=== PATIENT | female | born 1940 | race Caucasian/White ===

== ENCOUNTER 2018-03-22 09:15 | Inpatient (IN) | payer MEDICARE, OTHER ==
[~2018-03-22 09:15] MED LIST: Lactated Ringers 1,000 ML IV SCH; Lidocaine 1%/Sod Bicarbonate in NS 8.4% 1 ML Syringe IDERM PRN; Sodium Chloride 0.9% 10 ML Syringe FLUSH PRN
[2018-03-25] MEDS ORDERED: Lidocaine 1%/Sod Bicarbonate in NS 8.4% 1 ML Syringe IDERM PRN (00:01)
[2018-03-25] MEDS ORDERED: Sodium Chloride 0.9% 10 ML Syringe FLUSH PRN (00:01)
[2018-03-25] MEDS ORDERED: Lactated Ringers 1,000 ML IV SCH (00:01)
[2018-03-25] MEDS ORDERED: Vancomycin 1 GM SDV ONE (10:05)
[2018-03-25] MEDS ORDERED: Propofol 200 MG/20 ML SDV ONE (10:12)
[2018-03-25] MEDS ORDERED: ceFAZolin 1 GM Vial ONE (10:12)
[2018-03-25] MEDS ORDERED: fentaNYL 100 MCG/2 ML SDV ONE (10:13)
[2018-03-25] MEDS ORDERED: Midazolam 1 MG/ML 2 ML SDV ONE (10:21)
[2018-03-25] MEDS ORDERED: Bupivacaine 0.75% 30 ML SDV ONE (10:23)
[2018-03-25] MEDS ORDERED: Morphine PF 10 MG/10 ML SDV ONE (10:36)
--- NOTE | 2018-03-25 10:36 | PCM.PREANE ---
Preanesthetic Assessment - Anesthesia/Transfusion/Family Hx Anesthesia History: Prior Anesthesia Reaction Other Type of Anesthesia Reaction Comment: low blood pressure Family History of Anesthesia Reaction: No Transfusion History: Prior Transfusion Without Reaction - Review of Systems General: No Symptoms Pulmonary: No Symptoms Cardiovascular: No Symptoms Gastrointestinal: No Symptoms Neurological: Pre-Existing Deficit (Difficulty due to pain in hip at a "10".), Other (Back surgery with bone spur removal at L4-5. Approximately 4 years ago. ) Other: Reports: None (Shingles outbreak. No open lesions identified. Small red area near buttocks. Not painful. examined and wishes to proceed. ), Anxiety - Physical Assessment NPO Status Date: 03/24/18 NPO Status Time: 21:30 O2 Sat by Pulse Oximetry: 97 Respiratory Rate: 16 Vital Signs: Last Vital Signs Temp 36.8 C 03/25/18 09:40 Pulse 72 03/25/18 09:40 Resp 16 03/25/18 09:40 BP 154/54 H 03/25/18 09:40 Pulse Ox 97 03/25/18 09:40 ASA Class: 2 Mental Status: Alert & Oriented x3 Airway Class: Mallampati = 2 Dentition: Reports: Partial (One tooth on bottome removed. ) Thyro-Mental Finger Breadths: 3 Mouth Opening Finger Breadths: 3 ROM/Head Extension: Full Lungs: Clear to Auscultation, Normal Respiratory Effort Cardiovascular: Regular Rate, Regular Rhythm - Lab Values: Laboratory Last Values MRSA (PCR) Negative 03/10/18 09:39 - Allergies Allergies/Adverse Reactions: Allergies Allergy/AdvReac Type Severity Reaction Status Date / Time No Known Allergies Allergy Verified 03/25/18 10:03 - Acknowledgements Anesthesia Type Planned: Spinal Pt an Appropriate Candidate for the Planned Anesthesia: Yes Alternatives and Risks of Anesthesia Discussed w Pt/Guardian: Yes Pt/Guardian Understands and Agrees with Anesthesia Plan: Yes PreAnesthesia Questionnaire HEENT History: Reports: Impaired Vision, Other (See Below) Other HEENT History: has reading glasses and lower denture Cardiovascular History: Reports: None Respiratory History: Reports: Other (See Below) Other Respiratory History: bronchitis Gastrointestinal History: Reports: Other (See Below) Other Gastrointestinal History: adhesiolysis Genitourinary History: Reports: Other (See Below) Other Genitourinary History: frequency EMERGENCY DEPARTMENT TECHNICIAN History: Reports: None Musculoskeletal History: Reports: Back Pain, Chronic, Other (See Below) Other Musculoskeletal History: left hip pain Neurological History: Reports: None Psychiatric History: Reports: None Endocrine/Metabolic History: Reports: None Hematologic History: Reports: None Immunologic History: Reports: None Oncologic (Cancer) History: Reports: None Dermatologic History: Reports: None - Past Surgical History Head Surgeries/Procedures: Reports: None HEENT Surgical History: Reports: None Cardiovascular Surgical History: Reports: None Respiratory Surgical History: Reports: None GI Surgical History: Reports: Colonoscopy Female Surgical History: Reports: Section, Hysterectomy Male Surgical History: Reports: None Endocrine Surgical History: Reports: None Neurological Surgical History: Reports: Other (See Below) Other Neurological Surgeries/Procedures: low back surgery Musculoskeletal Surgical History: Reports: None Oncologic Surgical History: Reports: None Dermatological Surgical History: Reports: None - SUBSTANCE USE Smoking Status *Q: Never Smoker Second Hand Smoke Exposure: No Recreational Drug Use History: No - HOME MEDS Home Medications: Home Meds traMADol HCl [Tramadol HCl] 50 mg PO Q6H PRN 03/24/18 [History] - CURRENT (IN HOUSE) MEDS Current Meds: Current Medications Bisacodyl (Dulcolax) 5 mg PO DAILY PRN PRN Reason: Constipation Morphine Sulfate 8 mg/Epinephrine HCl 0.3 mg/Cefuroxime Sodium 750 mg/Ketorolac Tromethamine 30 mg/Sodium Chloride 27.9 ml 0 mg .XX ONETIME ONE Stop: 03/25/18 12:31 Cyclobenzaprine HCl (Flexeril) 10 mg PO TID PRN PRN Reason: Spasms Docusate Sodium (Colace) 100 mg PO BID [facility] Famotidine (Pepcid) 20 mg PO Q12H [facility] Lactated Ringer's (Ringers, Lactated) 1,000 mls @ 125 mls/hr IV ASDIRECTED [facility] Stop: 03/25/18 23:00 Last Admin: 03/25/18 10:15 Dose: 125 mls/hr Cefazolin Sodium/Dextrose 2 gm (/ Premix) 50 mls @ 100 mls/hr IV Q8H [facility] Stop: 03/26/18 02:44 Ketorolac Tromethamine (Toradol) 15 mg IVPUSH Q6H PRN PRN Reason: Pain Lidocaine/Sodium Bicarbonate (Buffered Lidocaine 1% In Ns 8.4%) 0.25 ml IDERM ONETIME PRN PRN Reason: Prior to IV Start Stop: 03/25/18 18:00 Last Admin: 03/25/18 10:13 Dose: 0.25 ml Magnesium Hydroxide (Milk Of Magnesia) 30 ml PO BID PRN PRN Reason: Constipation Morphine Sulfate (Morphine) 2 mg IVPUSH Q2H PRN PRN Reason: Breakthrough Pain Naloxone HCl (Narcan) 0.1 mg IVPUSH Q5M PRN PRN Reason: Oversedation Ondansetron HCl (Zofran) 4 mg IVPUSH Q6H PRN PRN Reason: Nausea/Vomiting Oxycodone/Acetaminophen (Percocet 325-5 Mg) 1 - 2 tab PO Q4H PRN PRN Reason: Pain Rivaroxaban (Xarelto) 10 mg PO DAILY [facility] Senna (Senna) 8.6 mg PO BID PRN PRN Reason: Constipation Sodium Chloride (Saline Flush) 10 ml FLUSH ASDIRECTED PRN PRN Reason: Keep Vein Open Stop: 03/25/18 18:00 Discontinued Medications Bupivacaine HCl (Marcaine 0.25%) Confirm Administered Dose 30 ml .ROUTE .STK- MED ONE Stop: 03/25/18 10:06 Bupivacaine HCl (Sensorcaine-Mpf 0.75%) Confirm Administered Dose 30 ml .ROUTE .STK-MED ONE Stop: 03/25/18 10:24 Cefazolin Sodium (Ancef) Confirm Administered Dose 2 gm .ROUTE .STK-MED ONE Stop: 03/25/18 10:06 Cefazolin Sodium (Ancef) Confirm Administered Dose 2 gm .ROUTE .STK-MED ONE Stop: 03/25/18 10:13 Fentanyl (Sublimaze) Confirm Administered Dose 100 mcg .ROUTE .STK-MED ONE Stop: 03/25/18 10:14 Lactated Ringer's (Ringers, Lactated) 1,000 mls @ 125 mls/hr IV ASDIRECTED [facility] Lidocaine HCl (Xylocaine-Mpf 1%) Confirm Administered Dose 5 mls @ as directed .ROUTE .STK-MED ONE Stop: 03/25/18 10:24 Iodine (Iodine 2% Mild Tincture) Confirm Administered Dose 30 ml .ROUTE .STK- MED ONE Stop: 03/25/18 10:06 Lidocaine/Sodium Bicarbonate (Buffered Lidocaine 1% In Ns 8.4%) 0.25 ml IDERM ONETIME PRN PRN Reason: Prior to IV Start Midazolam HCl (Versed 1 Mg/Ml) Confirm Administered Dose 2 mg .ROUTE .STK-MED ONE Stop: 03/25/18 10:22 Propofol (Diprivan 20 Ml) Confirm Administered Dose 600 mg .ROUTE .STK-MED ONE Stop: 03/25/18 10:13 Sodium Chloride (Saline Flush) 10 ml FLUSH ASDIRECTED PRN PRN Reason: Keep Vein Open Tranexamic Acid (Cyklokapron) Confirm Administered Dose 1,000 mg .ROUTE .STK- MED ONE Stop: 03/25/18 10:06 Vancomycin HCl (Vancomycin) Confirm Administered Dose 1 gm .ROUTE .STK-MED ONE Stop: 03/25/18 10:06
[2018-03-25] MEDS ORDERED: ePHEDrine/Normal Saline 25 MG/5 ML Syringe ONE ×2 (11:06→11:36)
[2018-03-25] MEDS ORDERED: Ondansetron 4 MG/2 ML SDV ONE (11:06)
[2018-03-25] MEDS ORDERED: diphenhydrAMINE 50 MG/ML SDV IVPUSH PRN (11:35)
[2018-03-25] MEDS ORDERED: fentaNYL 100 MCG/2 ML SDV IVPUSH PRN (11:35)
[2018-03-25] MEDS: Iodine/Sodium Iodide 2% Tincture 30 ML Bottle ONE ×2 (12:01→12:04)
[2018-03-25] MEDS: ceFAZolin 1 GM Vial ONE ×2 (12:02→12:10)
[2018-03-25] MEDS: Bupivacaine 0.25% 30 ML SDV ONE ×2 (12:02→12:11)
[2018-03-25] MEDS: Morphine 8 MG, EPINEPHrine 0.3 MG, Cefuroxime 750 MG, Ketorolac 30 MG, Sodium Chloride ... ONE ×15 (12:03→19:52)
[2018-03-25] MEDS ORDERED: Lactated Ringers 1,000 ML ONE (12:15)
--- NOTE | 2018-03-25 12:49 | PCM.POSTAN ---
POST ANESTHESIA ASSESSMENT - MENTAL STATUS Mental Status: Alert, Oriented - VITAL SIGNS Pulse Rate: 72 SaO2: 99 Resp Rate: 13 Blood Pressure: 111/51 Temperature: 36.6 C - RESPIRATORY Respiratory Status: Respiratory Rate WNL, Airway Patent, O2 Saturation Stable, Supplemental Oxygen - CARDIOVASCULAR CV Status: Pulse Rate WNL, Blood Pressure Stable - GASTROINTESTINAL GI Status: No Symptoms - PAIN Pain Score: 0 - POST OP HYDRATION Hydration Status: Adequate & Stable
[2018-03-25] MEDS ORDERED: Ondansetron 4 MG/2 ML SDV IVPUSH PRN (14:30)
[2018-03-25] MEDS ORDERED: Ketorolac 15 MG/ML SDV IVPUSH PRN (14:30)
[2018-03-25] MEDS ORDERED: Naloxone 0.4 MG/ML SDV IVPUSH PRN (14:30)
[2018-03-25] MEDS ORDERED: Cyclobenzaprine 10 MG Tab PO PRN (14:30)
[2018-03-25] MEDS ORDERED: Sennosides 8.6 MG Tab PO PRN (14:30)
[2018-03-25] MEDS ORDERED: Magnesium Hydroxide 400 MG/5 ML Susp 30 ML Cup PO PRN (14:30)
[2018-03-25] MEDS ORDERED: Morphine 2 MG/ML Syringe IVPUSH PRN (14:30)
[2018-03-25] MEDS ORDERED: Bisacodyl 5 MG Tab PO PRN (14:30)
--- NOTE | 2018-03-25 14:39 | CR ---
Pelvis and left hip: AP view of the pelvis was obtained as well as lateral view of the left hip. Comparison: Previous AP pelvis study of 01/21/18. Left hip prosthesis has been placed. Components are aligned. Soft tissue air is noted from the surgical procedure. Underlying bony structures are intact. Joint space narrowing is seen within the right hip. Slight sclerosis is noted within the pubic symphysis which is stable. Previous lower lumbar spine surgery is noted. Impression: 1. Recently placed left hip prosthesis which appears unremarkable. 2. Other findings as noted above which are fairly stable from previous AP pelvis study. Diagnostic code #2
--- NOTE | 2018-03-25 16:53 | PCM.CONS ---
H&P History of Present Illness - General Date of Service: 03/25/18 Admit Problem/Dx: Admission Diagnosis/Problem Admission Diagnosis/Problem Osteoarthritis of hip Source of Information: Patient History Limitations: Reports: No Limitations - History of Present Illness Initial Comments - Free Text/Narative: Farida is a 78 yo female patient of Dr. Cooper who is post-operative day 0 of L LUIS. Hospital medicine was consulted for post-operative medical care. At this time she is stable. Pain is controlled. She is having some nausea and vomiting. Antiemetics have been given with relief. She denies any chest pain, shortness of breath, or palpitations. She carries a history of: Anxiety, L buttock shingles, LBP, Osteopenia. She has never smoked. She is a full code. Her PCP is Alejandra Contreras PA-C. Left Hip Pain Score (Numeric/FACES): 0 - Related Data Allergies/Adverse Reactions: Allergies Allergy/AdvReac Type Severity Reaction Status Date / Time No Known Allergies Allergy Verified 03/25/18 10:03 Home Medications: Home Meds Acetaminophen/oxyCODONE [Percocet 325-5 MG] 1 - 2 tab PO Q6H PRN #60 tablet [Rx] Bisacodyl [Dulcolax] 5 mg PO DAILY PRN tablet 03/25/18 [Rx] Cyclobenzaprine [Flexeril] 10 mg PO TID PRN #40 tablet 03/25/18 [Rx] Docusate Sodium [Colace] 100 mg PO BID cap 03/25/18 [Rx] Famotidine [Pepcid] 20 mg PO Q12H tablet 03/25/18 [Rx] Magnesium Hydroxide [Milk of Magnesia] 30 ml PO BID PRN cup 03/25/18 [Rx] Rivaroxaban [Xarelto] 10 mg PO DAILY #40 tablet 03/25/18 [Rx] Sennosides [Senna] 8.6 mg PO BID PRN tablet 03/25/18 [Rx] traMADol [Ultram] 100 mg PO DAILY 03/25/18 [History] Past Medical History HEENT History: Reports: Impaired Vision, Other (See Below) Other HEENT History: has reading glasses and lower denture Cardiovascular History: Reports: None Respiratory History: Reports: Other (See Below) Other Respiratory History: bronchitis Gastrointestinal History: Reports: Other (See Below) Other Gastrointestinal History: adhesiolysis Genitourinary History: Reports: Other (See Below) Other Genitourinary History: frequency ART PSYCHOTHERAPIST History: Reports: None Musculoskeletal History: Reports: Back Pain, Chronic, Other (See Below) Other Musculoskeletal History: left hip pain Neurological History: Reports: None Psychiatric History: Reports: None Endocrine/Metabolic History: Reports: None Hematologic History: Reports: None Immunologic History: Reports: None Oncologic (Cancer) History: Reports: None Dermatologic History: Reports: None - Infectious Disease History Infectious Disease History: Reports: Chicken Pox, Shingles - Past Surgical History Head Surgeries/Procedures: Reports: None HEENT Surgical History: Reports: None Cardiovascular Surgical History: Reports: None Respiratory Surgical History: Reports: None GI Surgical History: Reports: Colonoscopy Female Surgical History: Reports: Section, Hysterectomy Endocrine Surgical History: Reports: None Neurological Surgical History: Reports: Other (See Below) Other Neurological Surgeries/Procedures: low back surgery Musculoskeletal Surgical History: Reports: None Oncologic Surgical History: Reports: None Dermatological Surgical History: Reports: None Social & Family History - Family History Family Medical History: Noncontributory - Tobacco Use Smoking Status *Q: Never Smoker Second Hand Smoke Exposure: No - Caffeine Use Caffeine Use: Reports: Coffee - Alcohol Use Days Per Week of Alcohol Use: 7 Number of Drinks Per Day: 1 Total Drinks Per Week: 7 Date of Last Drink: 03/24/18 - Recreational Drug Use Recreational Drug Use: No H&P Review of Systems - Review of Systems: Review Of Systems: See Below General: Reports: No Symptoms. Denies: Fever, Chills HEENT: Reports: No Symptoms Pulmonary: Reports: No Symptoms. Denies: Shortness of Breath, Cough Cardiovascular: Reports: No Symptoms. Denies: Chest Pain, Blood Pressure Problem Gastrointestinal: Reports: Nausea, Vomiting. Denies: Abdominal Pain, Diarrhea Genitourinary: Reports: No Symptoms. Denies: Dysuria, Frequency, Burning, Pain , Urgency Musculoskeletal: Reports: Joint Pain (s/p L LUIS) Skin: Reports: No Symptoms Psychiatric: Reports: No Symptoms Neurological: Reports: No Symptoms Hematologic/Lymphatic: Reports: No Symptoms Immunologic: Reports: No Symptoms Exam - Exam Exam: See Below - Vital Signs Vital Signs: Last Vital Signs Temp 207.3 F H 03/25/18 13:30 Pulse 72 03/25/18 12:49 Resp 12 03/25/18 13:30 BP 123/54 L 03/25/18 13:30 Pulse Ox 98 03/25/18 13:30 Weight: 131 lb - Exam Quality Assessment: DVT Prophylaxis General: Alert, Oriented, Cooperative, Mild Distress HEENT: Conjunctiva Clear, EACs Clear, EOMI, Hearing Intact, Mucosa Moist & [place] , Nares Patent, Normal Nasal Septum, Posterior Pharynx Clear, PERRLA Neck: Supple, Trachea Midline, 2 Lungs: Clear to Auscultation, Normal Respiratory Effort Cardiovascular: Regular Rate, Regular Rhythm GI/Abdominal Exam: Normal Bowel Sounds, Soft, Non-Tender, No Organomegaly, No Distention, No Abnormal Bruit, No Mass, Pelvis Stable (Female) Exam: Deferred Rectal (Female) Exam: Deferred Back Exam: Normal Inspection Extremities: Normal Inspection, Non-Tender, No Pedal Edema, Normal Capillary Refill, Limited Range of Motion (s/p L LUIS) Peripheral Pulses: 2+: Posterior Tibial (L), Posterior Tibial (R), Dorsalis Pedis (L), Dorsalis Pedis (R) Skin: Warm, Dry, Intact, Other (bandage dry and intact) Neurological: Cranial Nerves Intact (grossly) Psychiatric: Alert, Normal Affect, Normal Mood - Patient Data Lab Results Last 24 hrs: Laboratory Results - last 24 hr 03/25/18 Range/Units 10:48 Blood Type B POSITIVE Gel Antibody Screen Negative Consult PN Assessment/Plan POD#: 0 Procedures: Procedures ASSAY OF BLOOD/URIC ACID (02/26/18) ASSAY OF PREALBUMIN (02/26/18) ASSAY OF SERUM ALBUMIN (02/26/18) ASSAY THYROID STIM HORMONE (08/06/17) C-REACTIVE PROTEIN (02/26/18) COMPLETE CBC AUTOMATED (08/06/17) COMPREHEN METABOLIC PANEL (08/06/17) GLYCOSYLATED HEMOGLOBIN TEST (02/26/18) METABOLIC PANEL TOTAL CA (02/26/18) PROTHROMBIN TIME (02/26/18) THROMBOPLASTIN TIME PARTIAL (02/26/18) X-RAY EXAM CHEST 2 VIEWS (02/26/18) X-RAY EXAM L-S SPINE 2/3 VWS (01/21/18) X-RAY EXAM OF PELVIS (01/21/18) X-RAY EXAM OF WRIST (02/26/18) (1) S/P total hip arthroplasty SNOMED Code(s): 134943662193, 640090244672 Code(s): Z96.649 - PRESENCE OF UNSPECIFIED ARTIFICIAL HIP JOINT Priority: High Current Visit: Yes Qualifiers: Laterality: right Qualified Code(s): Z96.641 - Presence of right artificial hip joint Problem List Initiated/Reviewed/Updated: Yes Plan: I/P: Acute: S/P left total hip arthroplasty - post-operative day 0 -DVT prophylaxis and pain management per primary care team -PT/OT -IS/RT -Monitor oxygen saturation -Titrate oxygen as needed -Vital signs stable -Monitor labs -Hgb 13.5 -GFR >60 Osteoarthritis of hip -Pain management per primary care team Chronic: Anxiety L Buttock shingles LBP Osteopenia Plan: CM for discharge planning GI prophylaxis: Pepcid DVT/PE prophylaxis: Xaralto, LG ritter, SCD Home medications as indicated Other orders as listed above Routine AM labs She is a full code. Thank you for allowing us to participate in the care of this patient!
[2018-03-25] MEDS: ceFAZolin 2 GM in Premix Bag 1 BAG IV SCH (18:21)
[2018-03-25] MEDS ORDERED: Scopolamine 1.5 MG Transdermal Patch TRDERM PRN (19:18)
[2018-03-25] MEDS: Famotidine 20 MG Tab PO SCH (20:54)
[2018-03-25] MEDS: Docusate Sodium 100 MG Cap PO SCH (20:54)
[2018-03-25] MEDS: Acetaminophen/oxyCODONE 325-5 MG Tab PO PRN (20:54)
[2018-03-26] MEDS: ceFAZolin 2 GM in Premix Bag 1 BAG IV SCH ×2 (01:26→09:51)
[2018-03-26] MEDS: Acetaminophen/oxyCODONE 325-5 MG Tab PO PRN ×3 (01:29→11:27)
--- NOTE | 2018-03-26 06:24 | PCM.PN ---
- General Info Date of Service: 03/26/18 Admission Dx/Problem (Free Text): Admission Diagnosis/Problem Admission Diagnosis/Problem Osteoarthritis of hip Functional Status: Reports: Pain Controlled, Tolerating Diet, Ambulating, Urinating, Incentive Spirometry. Denies: New Symptoms - Review of Systems General: Reports: No Symptoms. Denies: Fever, Fatigue, Malaise, Chills HEENT: Reports: No Symptoms. Denies: Sore Throat Pulmonary: Reports: No Symptoms. Denies: Shortness of Breath, Pleuritic Chest Pain, Cough, Sputum, Wheezing Cardiovascular: Reports: No Symptoms. Denies: Chest Pain, Palpitations, Dyspnea on Exertion, Lightheadedness Gastrointestinal: Reports: No Symptoms. Denies: Abdominal Pain, Constipation, Diarrhea, Nausea, Vomiting Genitourinary: Reports: No Symptoms. Denies: Pain Musculoskeletal: Reports: Leg Pain Skin: Reports: No Symptoms Neurological: Reports: No Symptoms. Denies: Confusion, Dizziness, Numbness, Tingling, Trouble Speaking Psychiatric: Reports: No Symptoms - Patient Data Vitals - Most Recent: Last Vital Signs Temp 98.1 F 03/26/18 03:58 Pulse 81 03/26/18 03:58 Resp 16 03/26/18 03:58 BP 100/79 03/26/18 03:58 Pulse Ox 98 03/26/18 03:58 Weight - Most Recent: 137 lb 9 oz I&O - Last 24 Hours: Intake & Output 03/25/18 03/25/18 03/26/18 14:59 22:59 06:59 Intake Total 1000 850 Output Total 200 1000 Balance -200 0 850 Lab Results Last 24 Hours: Laboratory Results - last 24 hr 03/25/18 Range/Units 10:48 Blood Type B POSITIVE Gel Antibody Screen Negative Med Orders - Current: Current Medications Bisacodyl (Dulcolax) 5 mg PO DAILY PRN PRN Reason: Constipation Cyclobenzaprine HCl (Flexeril) 10 mg PO TID PRN PRN Reason: Spasms Docusate Sodium (Colace) 100 mg PO BID [facility] Last Admin: 03/25/18 20:54 Dose: 100 mg Famotidine (Pepcid) 20 mg PO Q12H [facility] Last Admin: 03/25/18 20:54 Dose: 20 mg Cefazolin Sodium/Dextrose 2 gm (/ Premix) 50 mls @ 100 mls/hr IV Q8H [facility] Stop: 03/26/18 10:44 Last Admin: 03/26/18 01:26 Dose: 100 mls/hr Ketorolac Tromethamine (Toradol) 15 mg IVPUSH Q6H PRN PRN Reason: Pain Magnesium Hydroxide (Milk Of Magnesia) 30 ml PO BID PRN PRN Reason: Constipation Morphine Sulfate (Morphine) 2 mg IVPUSH Q2H PRN PRN Reason: Breakthrough Pain Naloxone HCl (Narcan) 0.1 mg IVPUSH Q5M PRN PRN Reason: Oversedation Ondansetron HCl (Zofran) 4 mg IVPUSH Q6H PRN PRN Reason: Nausea/Vomiting Oxycodone/Acetaminophen (Percocet 325-5 Mg) 1 - 2 tab PO Q4H PRN PRN Reason: Pain Last Admin: 03/26/18 05:52 Dose: 2 tab Rivaroxaban (Xarelto) 10 mg PO DAILY [facility] Scopolamine (Transderm-Scop) 1.5 mg TRDERM Q72H PRN PRN Reason: Nausea/Vomiting Last Admin: 03/25/18 20:47 Dose: 1.5 mg Senna (Senna) 8.6 mg PO BID PRN PRN Reason: Constipation Discontinued Medications Bupivacaine HCl (Marcaine 0.25%) Confirm Administered Dose 30 ml .ROUTE .STK- MED ONE Stop: 03/25/18 10:06 Last Admin: 03/25/18 12:11 Dose: 30 ml Bupivacaine HCl (Sensorcaine-Mpf 0.75%) Confirm Administered Dose 30 ml .ROUTE .STK-MED ONE Stop: 03/25/18 10:24 Cefazolin Sodium (Ancef) Confirm Administered Dose 2 gm .ROUTE .STK-MED ONE Stop: 03/25/18 10:06 Last Admin: 03/25/18 12:10 Dose: 2 gm Cefazolin Sodium (Ancef) Confirm Administered Dose 2 gm .ROUTE .STK-MED ONE Stop: 03/25/18 10:13 Morphine Sulfate 8 mg/Epinephrine HCl 0.3 mg/Cefuroxime Sodium 750 mg/Ketorolac Tromethamine 30 mg/Sodium Chloride 27.9 ml 0 mg .XX ONETIME ONE Stop: 03/25/18 12:31 Last Admin: 03/25/18 19:52 Dose: Not Given Diphenhydramine HCl (Benadryl) 12.5 mg IVPUSH Q6H PRN PRN Reason: itching Stop: 03/25/18 14:00 Ephedrine Sulfate (Ephedrine In Ns) Confirm Administered Dose 25 mg .ROUTE .STK- MED ONE Stop: 03/25/18 11:07 Ephedrine Sulfate (Ephedrine In Ns) Confirm Administered Dose 25 mg .ROUTE .STK- MED ONE Stop: 03/25/18 11:37 Fentanyl (Sublimaze) Confirm Administered Dose 100 mcg .ROUTE .STK-MED ONE Stop: 03/25/18 10:14 Fentanyl (Sublimaze) 50 mcg IVPUSH Q5M PRN PRN Reason: pain Stop: 03/25/18 14:00 Lactated Ringer's (Ringers, Lactated) 1,000 mls @ 125 mls/hr IV ASDIRECTED [facility] Lactated Ringer's (Ringers, Lactated) 1,000 mls @ 125 mls/hr IV ASDIRECTED [facility] Stop: 03/25/18 23:00 Last Admin: 03/25/18 10:15 Dose: 125 mls/hr Lidocaine HCl (Xylocaine-Mpf 1%) Confirm Administered Dose 5 mls @ as directed .ROUTE .STK-MED ONE Stop: 03/25/18 10:24 Lactated Ringer's (Ringers, Lactated) Confirm Administered Dose 1,000 mls @ as directed .ROUTE .STK-MED ONE Stop: 03/25/18 12:16 Iodine (Iodine 2% Mild Tincture) Confirm Administered Dose 30 ml .ROUTE .STK- MED ONE Stop: 03/25/18 10:06 Last Admin: 03/25/18 12:04 Dose: 18 ml Lidocaine/Sodium Bicarbonate (Buffered Lidocaine 1% In Ns 8.4%) 0.25 ml IDERM ONETIME PRN PRN Reason: Prior to IV Start Lidocaine/Sodium Bicarbonate (Buffered Lidocaine 1% In Ns 8.4%) 0.25 ml IDERM ONETIME PRN PRN Reason: Prior to IV Start Stop: 03/25/18 18:00 Last Admin: 03/25/18 10:13 Dose: 0.25 ml Midazolam HCl (Versed 1 Mg/Ml) Confirm Administered Dose 2 mg .ROUTE .STK-MED ONE Stop: 03/25/18 10:22 Morphine Sulfate (Duramorph Pf) Confirm Administered Dose 10 mg .ROUTE .STK-MED ONE Stop: 03/25/18 10:37 Ondansetron HCl (Zofran) Confirm Administered Dose 4 mg .ROUTE .STK-MED ONE Stop: 03/25/18 11:07 Propofol (Diprivan 20 Ml) Confirm Administered Dose 600 mg .ROUTE .STK-MED ONE Stop: 03/25/18 10:13 Sodium Chloride (Saline Flush) 10 ml FLUSH ASDIRECTED PRN PRN Reason: Keep Vein Open Sodium Chloride (Saline Flush) 10 ml FLUSH ASDIRECTED PRN PRN Reason: Keep Vein Open Stop: 03/25/18 18:00 Tranexamic Acid (Cyklokapron) Confirm Administered Dose 1,000 mg .ROUTE .STK- MED ONE Stop: 03/25/18 10:06 Last Admin: 03/25/18 12:15 Dose: 1,000 mg Vancomycin HCl (Vancomycin) Confirm Administered Dose 1 gm .ROUTE .STK-MED ONE Stop: 03/25/18 10:06 Last Admin: 03/25/18 12:12 Dose: 1 gm - Exam Quality Assessment: DVT Prophylaxis. No: Supplemental Oxygen, Urine Catheter General: Alert, Oriented, Cooperative, No Acute Distress HEENT: Pupils Equal, Pupils Reactive, EOMI, Mucous Membr. Moist/[place] Neck: Supple, Trachea Midline, No JVD Lungs: Clear to Auscultation, Normal Respiratory Effort Cardiovascular: Regular Rate, Regular Rhythm GI/Abdominal Exam: Normal Bowel Sounds, Soft, Non-Tender, No Distention, No Abnormal Bruit (Female) Exam: Deferred Back Exam: Normal Inspection, Full Range of Motion Extremities: No Pedal Edema, Normal Capillary Refill, Leg Pain, Limited Range of Motion, Other (Bandage in place on right leg. Cooling pack in place. ) Peripheral Pulses: 2+: Radial (L), Radial (R), Dorsalis Pedis (L), Dorsalis Pedis (R) Skin: Warm, Dry, Intact Wound/Incisions: Dressing Dry and Intact, No Drainage Neurological: No New Focal Deficit Psy/Mental Status: Alert, Normal Affect, Normal Mood - Problem List & Annotations (1) S/P total hip arthroplasty SNOMED Code(s): 149674165559, 260463969295 Code(s): Z96.649 - PRESENCE OF UNSPECIFIED ARTIFICIAL HIP JOINT Status: Acute Priority: High Current Visit: Yes Qualifiers: Laterality: right Qualified Code(s): Z96.641 - Presence of right artificial hip joint - Problem List Review Problem List Initiated/Reviewed/Updated: Yes - Plan Plan:: I/P: Acute: S/P left total hip arthroplasty - post-operative day 1 -DVT prophylaxis and pain management per primary care team -PT/OT -IS/RT -Monitor oxygen saturation -Titrate oxygen as needed -Vital signs stable -Monitor labs -Pre-operative Hgb 13.5; Now 11.4 -Pre-operative GFR >60; Now >60 Osteoarthritis of hip -Pain management per primary care team Chronic: Anxiety L Buttock shingles LBP Osteopenia Plan: CM for discharge planning GI prophylaxis: Pepcid DVT/PE prophylaxis: Xaralto, LG hose, SCD Home medications as indicated Other orders as listed above Routine AM labs She is a full code. From a hospitalist standpoint Farida is doing well. She has been working with therapies and ambulating. She is off of oxygen and has urinated. Labs and vital signs remain stable. She has been utilizing her IS and pain is controlled. She is cleared for discharge pending primary team and PT/OT agreement. Thank you for allowing us to participate in the care of this patient!
[2018-03-26] MEDS: Docusate Sodium 100 MG Cap PO SCH (08:12)
[2018-03-26] MEDS: Famotidine 20 MG Tab PO SCH (08:12)
--- NOTE | 2018-03-26 08:30 | PCM.SURGPN ---
- General Info Date of Service: 03/26/18 POD#: 1 Functional Status: Reports: Pain Controlled, Tolerating Diet, Ambulating, Urinating, Incentive Spirometry, Other (The pt states she is doing well. ) - Patient Data Vitals - Most Recent: Last Vital Signs Temp 99.0 F 03/26/18 08:09 Pulse 75 03/26/18 08:09 Resp 12 03/26/18 08:09 BP 95/31 L 03/26/18 08:09 Pulse Ox 94 L 03/26/18 08:09 Weight - Most Recent: 137 lb 9 oz I&O - Last 24 Hours: Intake & Output 03/25/18 03/26/18 03/26/18 22:59 06:59 14:59 Intake Total 1120 850 Output Total 1000 Balance 120 850 Lab Results Last 24 Hrs: Laboratory Results - last 24 hr 03/25/18 03/26/18 03/26/18 Range/Units 10:48 06:10 06:10 WBC 7.12 (3.98-10.04) K/mm3 RBC 3.86 L (3.98-5.22) M/mm3 Hgb 11.4 (11.2-15.7) gm/L Hct 35.2 (34.1-44.9) % MCV 91.2 (79.4-94.8) fl MCH 29.5 (25.6-32.2) pg MCHC 32.4 (32.2-35.5) g/dl RDW Std Deviation 44.9 (36.4-46.3) fL Plt Count 196 (182-369) K/mm3 MPV 9.9 (9.4-12.3) fl Sodium 138 (136-145) mEq/L Potassium 4.0 (3.5-5.1) mEq/L Chloride 103 (98-107) mEq/L Carbon Dioxide 29 (21-32) mEq/L Anion Gap 10.0 (5-15) BUN 15 (7-18) mg/dL Creatinine 0.7 (0.55-1.02) mg/dL Est Cr Clr Drug Dosing 49.18 mL/min Estimated GFR (MDRD) > 60 (>60) mL/min BUN/Creatinine Ratio 21.4 H (14-18) Glucose 115 (83-115) mg/dL Calcium 8.4 L (8.5-10.1) mg/dL Total Bilirubin 0.3 (0.2-1.0) mg/dL AST 29 (15-37) U/L ALT 22 (14-59) U/L Alkaline Phosphatase 45 L (46-116) U/L Total Protein 6.2 L (6.4-8.2) g/dl Albumin 3.1 L (3.4-5.0) g/dl Globulin 3.1 gm/dL Albumin/Globulin Ratio 1.0 (1-2) Blood Type B POSITIVE Gel Antibody Screen Negative Med Orders - Current: Current Medications Bisacodyl (Dulcolax) 5 mg PO DAILY PRN PRN Reason: Constipation Cyclobenzaprine HCl (Flexeril) 10 mg PO TID PRN PRN Reason: Spasms Docusate Sodium (Colace) 100 mg PO BID [facility] Last Admin: 03/26/18 08:12 Dose: 100 mg Famotidine (Pepcid) 20 mg PO Q12H [facility] Last Admin: 03/26/18 08:12 Dose: 20 mg Cefazolin Sodium/Dextrose 2 gm (/ Premix) 50 mls @ 100 mls/hr IV Q8H [facility] Stop: 03/26/18 10:44 Last Admin: 03/26/18 01:26 Dose: 100 mls/hr Ketorolac Tromethamine (Toradol) 15 mg IVPUSH Q6H PRN PRN Reason: Pain Magnesium Hydroxide (Milk Of Magnesia) 30 ml PO BID PRN PRN Reason: Constipation Morphine Sulfate (Morphine) 2 mg IVPUSH Q2H PRN PRN Reason: Breakthrough Pain Naloxone HCl (Narcan) 0.1 mg IVPUSH Q5M PRN PRN Reason: Oversedation Ondansetron HCl (Zofran) 4 mg IVPUSH Q6H PRN PRN Reason: Nausea/Vomiting Oxycodone/Acetaminophen (Percocet 325-5 Mg) 1 - 2 tab PO Q4H PRN PRN Reason: Pain Last Admin: 03/26/18 05:52 Dose: 2 tab Rivaroxaban (Xarelto) 10 mg PO DAILY [facility] Last Admin: 03/26/18 08:13 Dose: 10 mg Scopolamine (Transderm-Scop) 1.5 mg TRDERM Q72H PRN PRN Reason: Nausea/Vomiting Last Admin: 03/25/18 20:47 Dose: 1.5 mg Senna (Senna) 8.6 mg PO BID PRN PRN Reason: Constipation Discontinued Medications Bupivacaine HCl (Marcaine 0.25%) Confirm Administered Dose 30 ml .ROUTE .STK- MED ONE Stop: 03/25/18 10:06 Last Admin: 03/25/18 12:11 Dose: 30 ml Bupivacaine HCl (Sensorcaine-Mpf 0.75%) Confirm Administered Dose 30 ml .ROUTE .STK-MED ONE Stop: 03/25/18 10:24 Cefazolin Sodium (Ancef) Confirm Administered Dose 2 gm .ROUTE .STK-MED ONE Stop: 03/25/18 10:06 Last Admin: 03/25/18 12:10 Dose: 2 gm Cefazolin Sodium (Ancef) Confirm Administered Dose 2 gm .ROUTE .STK-MED ONE Stop: 03/25/18 10:13 Morphine Sulfate 8 mg/Epinephrine HCl 0.3 mg/Cefuroxime Sodium 750 mg/Ketorolac Tromethamine 30 mg/Sodium Chloride 27.9 ml 0 mg .XX ONETIME ONE Stop: 03/25/18 12:31 Last Admin: 03/25/18 19:52 Dose: Not Given Diphenhydramine HCl (Benadryl) 12.5 mg IVPUSH Q6H PRN PRN Reason: itching Stop: 03/25/18 14:00 Ephedrine Sulfate (Ephedrine In Ns) Confirm Administered Dose 25 mg .ROUTE .STK- MED ONE Stop: 03/25/18 11:07 Ephedrine Sulfate (Ephedrine In Ns) Confirm Administered Dose 25 mg .ROUTE .STK- MED ONE Stop: 03/25/18 11:37 Fentanyl (Sublimaze) Confirm Administered Dose 100 mcg .ROUTE .STK-MED ONE Stop: 03/25/18 10:14 Fentanyl (Sublimaze) 50 mcg IVPUSH Q5M PRN PRN Reason: pain Stop: 03/25/18 14:00 Lactated Ringer's (Ringers, Lactated) 1,000 mls @ 125 mls/hr IV ASDIRECTED [facility] Lactated Ringer's (Ringers, Lactated) 1,000 mls @ 125 mls/hr IV ASDIRECTED [facility] Stop: 03/25/18 23:00 Last Admin: 03/25/18 10:15 Dose: 125 mls/hr Lidocaine HCl (Xylocaine-Mpf 1%) Confirm Administered Dose 5 mls @ as directed .ROUTE .ST-MED ONE Stop: 03/25/18 10:24 Lactated Ringer's (Ringers, Lactated) Confirm Administered Dose 1,000 mls @ as directed .ROUTE .STK-MED ONE Stop: 03/25/18 12:16 Iodine (Iodine 2% Mild Tincture) Confirm Administered Dose 30 ml .ROUTE .ST- MED ONE Stop: 03/25/18 10:06 Last Admin: 03/25/18 12:04 Dose: 18 ml Lidocaine/Sodium Bicarbonate (Buffered Lidocaine 1% In Ns 8.4%) 0.25 ml IDERM ONETIME PRN PRN Reason: Prior to IV Start Lidocaine/Sodium Bicarbonate (Buffered Lidocaine 1% In Ns 8.4%) 0.25 ml IDERM ONETIME PRN PRN Reason: Prior to IV Start Stop: 03/25/18 18:00 Last Admin: 03/25/18 10:13 Dose: 0.25 ml Midazolam HCl (Versed 1 Mg/Ml) Confirm Administered Dose 2 mg .ROUTE .ST-MED ONE Stop: 03/25/18 10:22 Morphine Sulfate (Duramorph Pf) Confirm Administered Dose 10 mg .ROUTE .ST-MED ONE Stop: 03/25/18 10:37 Ondansetron HCl (Zofran) Confirm Administered Dose 4 mg .ROUTE .ST-MED ONE Stop: 03/25/18 11:07 Propofol (Diprivan 20 Ml) Confirm Administered Dose 600 mg .ROUTE .ST-MED ONE Stop: 03/25/18 10:13 Sodium Chloride (Saline Flush) 10 ml FLUSH ASDIRECTED PRN PRN Reason: Keep Vein Open Sodium Chloride (Saline Flush) 10 ml FLUSH ASDIRECTED PRN PRN Reason: Keep Vein Open Stop: 03/25/18 18:00 Tranexamic Acid (Cyklokapron) Confirm Administered Dose 1,000 mg .ROUTE .STK- MED ONE Stop: 03/25/18 10:06 Last Admin: 03/25/18 12:15 Dose: 1,000 mg Vancomycin HCl (Vancomycin) Confirm Administered Dose 1 gm .ROUTE .STK-MED ONE Stop: 03/25/18 10:06 Last Admin: 03/25/18 12:12 Dose: 1 gm - Exam Wound/Incisions: Dressing Dry and Intact General: Alert, Cooperative, No Acute Distress Lungs: Normal Respiratory Effort Extremities: Other (NVS intact for BLE. Claudia's negative for BLE.) - Problem List Review Problem List Initiated/Reviewed/Updated: Yes - My Orders Last 24 Hours: Active Orders 24 hr Category Date Time Status Patient Status [ADT] Routine ADT 03/25/18 10:04 Active Ambulate [RC] PER UNIT ROUTINE Care 03/25/18 10:04 Active Bladder Scan [RC] ASDIRECTED Care 03/26/18 01:03 Active Cooling Warming Measures [RC] ASDIRECTED Care 03/25/18 11:35 Inactive May Shower [RC] ASDIRECTED Care 03/25/18 10:04 Active Notify Provider Consults [RC] ASDIRECTED Care 03/25/18 10:06 Active Oxygen Therapy [RC] ASDIRECTED Care 03/25/18 11:35 Active Pulse Oximetry [RC] ASDIRECTED Care 03/25/18 11:35 Active RT Incentive Spirometry [RC] Q1HWA Care 03/25/18 10:03 Active Ready for Discharge [RC] PER UNIT ROUTINE Care 03/26/18 08:17 Active Up to Chair [RC] ASDIRECTED Care 03/25/18 10:04 Active Vital Signs [RC] Q4HR Care 03/25/18 10:04 Active Consult to Physician [CONS] Routine Cons 03/25/18 10:04 Active OT Evaluation and Treatment [CONS] Routine Cons 03/25/18 10:03 Active PT Evaluation and Treatment [CONS] Routine Cons 03/25/18 10:03 Active Regular Diet [DIET] Diet 03/25/18 Lunch Active Acetaminophen/oxyCODONE [Percocet 325-5 MG] Med 03/25/18 14:30 Active 1 - 2 tab PO Q4H PRN Bisacodyl [Dulcolax] Med 03/25/18 14:30 Active 5 mg PO DAILY PRN Cyclobenzaprine [Flexeril] Med 03/25/18 14:30 Active 10 mg PO TID PRN Docusate Sodium [Colace] Med 03/25/18 21:00 Active 100 mg PO BID Famotidine [Pepcid] Med 03/25/18 21:00 Active 20 mg PO Q12H Ketorolac [Toradol] Med 03/25/18 14:30 Active 15 mg IVPUSH Q6H PRN Magnesium Hydroxide [Milk of Magnesia] Med 03/25/18 14:30 Active 30 ml PO BID PRN Morphine Med 03/25/18 14:30 Active 2 mg IVPUSH Q2H PRN Naloxone [Narcan] Med 03/25/18 14:30 Active 0.1 mg IVPUSH Q5M PRN Ondansetron [Zofran] Med 03/25/18 14:30 Active 4 mg IVPUSH Q6H PRN Rivaroxaban [Xarelto] Med 03/26/18 09:00 Active 10 mg PO DAILY Scopolamine [Transderm-Scop] Med 03/25/18 19:18 Active 1.5 mg TRDERM Q72H PRN Sennosides [Senna] Med 03/25/18 14:30 Active 8.6 mg PO BID PRN ceFAZolin [Ancef] 2 gm Med 03/25/18 18:15 Active Premix Bag 1 bag IV Q8H Antiembolic Hose [OM.PC] Per Unit Routine Oth 03/25/18 10:05 Ordered Hip Precautions Posterior [OM.PC] Routine Oth 03/25/18 10:03 Ordered Ice Therapy [OM.PC] Per Unit Routine Oth 03/25/18 10:05 Ordered Sequential Compression Device [OM.PC] Per Unit Routine Oth 03/25/18 10:03 Ordered Resuscitation Status Routine Resus Stat 03/25/18 10:04 Ordered Medication Orders Bisacodyl (Dulcolax) 5 mg PO DAILY PRN PRN Reason: Constipation Cyclobenzaprine HCl (Flexeril) 10 mg PO TID PRN PRN Reason: Spasms Docusate Sodium (Colace) 100 mg PO BID [facility] Last Admin: 03/26/18 08:12 Dose: 100 mg Admin: 03/25/18 20:54 Dose: 100 mg Famotidine (Pepcid) 20 mg PO Q12H [facility] Last Admin: 03/26/18 08:12 Dose: 20 mg Admin: 03/25/18 20:54 Dose: 20 mg Cefazolin Sodium/Dextrose 2 gm (/ Premix) 50 mls @ 100 mls/hr IV Q8H [facility] Stop: 03/26/18 10:44 Last Admin: 03/26/18 01:26 Dose: 100 mls/hr Infusion: 03/25/18 18:51 Dose: 100 mls/hr Admin: 03/25/18 18:21 Dose: 100 mls/hr Ketorolac Tromethamine (Toradol) 15 mg IVPUSH Q6H PRN PRN Reason: Pain Magnesium Hydroxide (Milk Of Magnesia) 30 ml PO BID PRN PRN Reason: Constipation Morphine Sulfate (Morphine) 2 mg IVPUSH Q2H PRN PRN Reason: Breakthrough Pain Naloxone HCl (Narcan) 0.1 mg IVPUSH Q5M PRN PRN Reason: Oversedation Ondansetron HCl (Zofran) 4 mg IVPUSH Q6H PRN PRN Reason: Nausea/Vomiting Oxycodone/Acetaminophen (Percocet 325-5 Mg) 1 - 2 tab PO Q4H PRN PRN Reason: Pain Last Admin: 03/26/18 05:52 Dose: 2 tab Admin: 03/26/18 01:29 Dose: 2 tab Admin: 03/25/18 20:54 Dose: 1 tab Rivaroxaban (Xarelto) 10 mg PO DAILY [facility] Last Admin: 03/26/18 08:13 Dose: 10 mg Scopolamine (Transderm-Scop) 1.5 mg TRDERM Q72H PRN PRN Reason: Nausea/Vomiting Last Admin: 03/25/18 20:47 Dose: 1.5 mg Senna (Senna) 8.6 mg PO BID PRN PRN Reason: Constipation - Assessment Assessment (Free Text/Narrative):: PPOD#1 - left LUIS - Plan Plan (Free Text/Narrative):: 1. Discharge to home today. The pt will have the assistance of her and friend. 2. Xarelto - personal hx VTE. 3. Hgb 11.4. The pt's case was discussed with Dr. Cooper.
[2018-03-26] MEDS ORDERED: Rivaroxaban 10 MG Tab PO SCH (09:00)
--- NOTE | 2018-03-26 09:43 | PCM48HPAN ---
Post Anesthesia Note - EVALUATION WITHIN 48HRS OF ANESTHETIC Vital Signs in Normal Range: Yes Patient Participated in Evaluation: Yes Respiratory Function Stable: Yes Airway Patent: Yes Cardiovascular Function Stable: Yes Hydration Status Stable: Yes Pain Control Satisfactory: Yes Nausea and Vomiting Control Satisfactory: Yes Mental Status Recovered: Yes - COMMENTS/OBSERVATIONS Free Text/Narrative:: Pt was nauseated throughout the majority of night last evening. She did end up vomiting a couple times also. Now the patient feels better and denies any nausea/ vomiting, back pain, or residual numbness or tingling to LE.
--- NOTE | 2018-03-29 15:07 | PCM.DCSUM1 ---
Discharge Summary - Hospital Course Brief History: Farida is a 78 yo female who underwent left LUIS with Dr. Cooper on 03-25-2018. The procedure was completed under spinal anesthesia with sedation. The pt tolerated the procedure well and was admitted to the Medical-Surgical Unit. Medical management was provided by the Hospitalist service. The pt's Hospital course was uneventful. The pt's Hgb on POD#1 was 11.4. On POD#1, Xarelto 10mg PO daily was initiated for VTE prophylaxis. SCDs and TEDs were also ordered. A Mepilex dressing was placed at the incision site at the time of surgery and remained clean and dry. The pt participated in P.T. and O.T. and progressed well. She followed the LUIS precautions. The pt was allowed to WBAT. On POD#1, the pt was deemed appropriate to discharge to home with her . - Discharge Data Discharge Date: 03/26/18 Discharge Disposition: Home, Self-Care 01 Condition: Good - Patient Summary/Data Consults: Consultations 03/25/18 10:03 OT Evaluation and Treatment [CONS] Routine PT Evaluation and Treatment [CONS] Routine 03/25/18 10:04 Consult to Physician [CONS] Routine - Patient Instructions Diet: Usual Diet as Tolerated Activity: Apply Ice, As Tolerated, Elevate Extremity, Full Weight Bearing Driving: Do Not Drive Showering/Bathing: May Shower Wound/Incision Care: Keep Operative Site/Wound Site Clean and Dry, Do NOT Change Dressing Notify Provider of: Fever, Increased Pain, Swelling and Redness, Drainage, Nausea and/or Vomiting Other/Special Instructions: Please get up and moving around EVERY HOUR while awake. This helps to prevent blood clots. Please use your walker and have help with mobility as needed. Take a short walk in your home every hour while awake. Please the Xarelto blood thinner medication daily as directed. At home , please complete the exercises that you learned during the Hospital stay. Schedule for physical therapy. Use the pain medication as needed. The medication may cause drowsiness and constipation. Contact your primary care provider for instructions if you are constipated. You may use a stool softener like docusate sodium or Colace 100mg twice daily and/or a laxative like Miralax daily for constipation. Increase your water and fiber intake while you are using the pain medication. Please try to wean from use of the pain medication as soon as able. Please do not use other medications that may cause drowsiness (other pain medications, anxiety pills, cold medications, sleeping pills, etc) while using the prescription pain medication. Do not use alcohol while using the pain medication. Wear the LG hose during the day and you may remove these at night. Elevate the limb to decrease swelling. Place ice to the area often. Place a towel between your skin and the blue pad. Use the incentive spirometer often. Take deep breaths throughout the day. Please keep the dressing in place until follow-up. Notify the Clinic if the dressing becomes saturated. Increase your protein intake while you are healing. If you have diabetes, please closely monitor your blood sugars and notify your primary care provider with abnormal values. Elevated blood sugars increases the risk of infection. Call the Clinic with questions or concerns - [phone]. - Discharge Plan *PRESCRIPTION DRUG MONITORING PROGRAM REVIEWED*: No *COPY OF PRESCRIPTION DRUG MONITORING REPORT IN PATIENT PATRICIA: No Prescriptions/Med Rec: Acetaminophen/oxyCODONE [Percocet 325-5 MG] 1 - 2 tab PO Q6H PRN #60 tablet PRN Reason: Pain Rivaroxaban [Xarelto] 10 mg PO DAILY #40 tablet Home Medications: Home Meds Acetaminophen/oxyCODONE [Percocet 325-5 MG] 1 - 2 tab PO Q6H PRN #60 tablet [Rx] Bisacodyl [Dulcolax] 5 mg PO DAILY PRN tablet 03/25/18 [Rx] Docusate Sodium [Colace] 100 mg PO BID cap 03/25/18 [Rx] Famotidine [Pepcid] 20 mg PO Q12H tablet 03/25/18 [Rx] Magnesium Hydroxide [Milk of Magnesia] 30 ml PO BID PRN cup 03/25/18 [Rx] Rivaroxaban [Xarelto] 10 mg PO DAILY #40 tablet 03/25/18 [Rx] Sennosides [Senna] 8.6 mg PO BID PRN tablet 03/25/18 [Rx] Patient Handouts: Total Hip Replacement, Care After Referrals: Lupe Castillo PA-C [Physician [facility]2 Dba] - 04/02/18 8:30 am (Apr 02 829 @ [facility] Cherise carl/Lupe Castillo Apr 09 899 @ [facility] Cherise carl/ Lupe Castillo) Landy Contreras PA-C [Primary Care Provider] - (please schedule a hospital follow up appointment with your primary health care provider within 2 weeks.) - Discharge Summary/Plan Comment DC Time >30 min.: No - Patient Data Vitals - Most Recent: Last Vital Signs Temp 100.4 F 03/26/18 13:29 Pulse 80 03/26/18 13:29 Resp 16 03/26/18 13:30 BP 129/59 L 03/26/18 13:29 Pulse Ox 95 03/26/18 13:29 Weight - Most Recent: 137 lb 9 oz Med Orders - Current: Current Medications Discontinued Medications Bisacodyl (Dulcolax) 5 mg PO DAILY PRN PRN Reason: Constipation Bupivacaine HCl (Marcaine 0.25%) Confirm Administered Dose 30 ml .ROUTE .STK- MED ONE Stop: 03/25/18 10:06 Last Admin: 03/25/18 12:11 Dose: 30 ml Bupivacaine HCl (Sensorcaine-Mpf 0.75%) Confirm Administered Dose 30 ml .ROUTE .STK-MED ONE Stop: 03/25/18 10:24 Cefazolin Sodium (Ancef) Confirm Administered Dose 2 gm .ROUTE .STK-MED ONE Stop: 03/25/18 10:06 Last Admin: 03/25/18 12:10 Dose: 2 gm Cefazolin Sodium (Ancef) Confirm Administered Dose 2 gm .ROUTE .STK-MED ONE Stop: 03/25/18 10:13 Morphine Sulfate 8 mg/Epinephrine HCl 0.3 mg/Cefuroxime Sodium 750 mg/Ketorolac Tromethamine 30 mg/Sodium Chloride 27.9 ml 0 mg .XX ONETIME ONE Stop: 03/25/18 12:31 Last Admin: 03/25/18 19:52 Dose: Not Given Cyclobenzaprine HCl (Flexeril) 10 mg PO TID PRN PRN Reason: Spasms Last Admin: 03/26/18 13:12 Dose: 10 mg Diphenhydramine HCl (Benadryl) 12.5 mg IVPUSH Q6H PRN PRN Reason: itching Stop: 03/25/18 14:00 Docusate Sodium (Colace) 100 mg PO BID [facility] Last Admin: 03/26/18 08:12 Dose: 100 mg Ephedrine Sulfate (Ephedrine In Ns) Confirm Administered Dose 25 mg .ROUTE .[facility] ONE Stop: 03/25/18 11:07 Ephedrine Sulfate (Ephedrine In Ns) Confirm Administered Dose 25 mg .ROUTE .[facility]- [facility] ONE Stop: 03/25/18 11:37 Famotidine (Pepcid) 20 mg PO Q12H [facility] Last Admin: 03/26/18 08:12 Dose: 20 mg Fentanyl (Sublimaze) Confirm Administered Dose 100 mcg .ROUTE .ST-MED ONE Stop: 03/25/18 10:14 Fentanyl (Sublimaze) 50 mcg IVPUSH Q5M PRN PRN Reason: pain Stop: 03/25/18 14:00 Lactated Ringer's (Ringers, Lactated) 1,000 mls @ 125 mls/hr IV ASDIRECTED [facility] Lactated Ringer's (Ringers, Lactated) 1,000 mls @ 125 mls/hr IV ASDIRECTED [facility] Stop: 03/25/18 23:00 Last Admin: 03/25/18 10:15 Dose: 125 mls/hr Cefazolin Sodium/Dextrose 2 gm (/ Premix) 50 mls @ 100 mls/hr IV Q8H [facility] Stop: 03/26/18 10:44 Last Admin: 03/26/18 09:51 Dose: 100 mls/hr Lidocaine HCl (Xylocaine-Mpf 1%) Confirm Administered Dose 5 mls @ as directed .ROUTE .[facility] ONE Stop: 03/25/18 10:24 Lactated Ringer's (Ringers, Lactated) Confirm Administered Dose 1,000 mls @ as directed .ROUTE .[facility] ONE Stop: 03/25/18 12:16 Iodine (Iodine 2% Mild Tincture) Confirm Administered Dose 30 ml .ROUTE .[facility] ONE Stop: 03/25/18 10:06 Last Admin: 03/25/18 12:04 Dose: 18 ml Ketorolac Tromethamine (Toradol) 15 mg IVPUSH Q6H PRN PRN Reason: Pain Lidocaine/Sodium Bicarbonate (Buffered Lidocaine 1% In Ns 8.4%) 0.25 ml IDERM ONETIME PRN PRN Reason: Prior to IV Start Lidocaine/Sodium Bicarbonate (Buffered Lidocaine 1% In Ns 8.4%) 0.25 ml IDERM ONETIME PRN PRN Reason: Prior to IV Start Stop: 03/25/18 18:00 Last Admin: 03/25/18 10:13 Dose: 0.25 ml Magnesium Hydroxide (Milk Of Magnesia) 30 ml PO BID PRN PRN Reason: Constipation Midazolam HCl (Versed 1 Mg/Ml) Confirm Administered Dose 2 mg .ROUTE .STK-MED ONE Stop: 03/25/18 10:22 Morphine Sulfate (Morphine) 2 mg IVPUSH Q2H PRN PRN Reason: Breakthrough Pain Morphine Sulfate (Duramorph Pf) Confirm Administered Dose 10 mg .ROUTE .STK-MED ONE Stop: 03/25/18 10:37 Naloxone HCl (Narcan) 0.1 mg IVPUSH Q5M PRN PRN Reason: Oversedation Ondansetron HCl (Zofran) 4 mg IVPUSH Q6H PRN PRN Reason: Nausea/Vomiting Last Admin: 03/26/18 11:27 Dose: 4 mg Ondansetron HCl (Zofran) Confirm Administered Dose 4 mg .ROUTE .STK-MED ONE Stop: 03/25/18 11:07 Oxycodone/Acetaminophen (Percocet 325-5 Mg) 1 - 2 tab PO Q4H PRN PRN Reason: Pain Last Admin: 03/26/18 11:27 Dose: 2 tab Propofol (Diprivan 20 Ml) Confirm Administered Dose 600 mg .ROUTE .STK-MED ONE Stop: 03/25/18 10:13 Rivaroxaban (Xarelto) 10 mg PO DAILY [facility] Last Admin: 03/26/18 08:13 Dose: 10 mg Scopolamine (Transderm-Scop) 1.5 mg TRDERM Q72H PRN PRN Reason: Nausea/Vomiting Last Admin: 03/25/18 20:47 Dose: 1.5 mg Senna (Senna) 8.6 mg PO BID PRN PRN Reason: Constipation Sodium Chloride (Saline Flush) 10 ml FLUSH ASDIRECTED PRN PRN Reason: Keep Vein Open Sodium Chloride (Saline Flush) 10 ml FLUSH ASDIRECTED PRN PRN Reason: Keep Vein Open Stop: 03/25/18 18:00 Tranexamic Acid (Cyklokapron) Confirm Administered Dose 1,000 mg .ROUTE .STK- MED ONE Stop: 03/25/18 10:06 Last Admin: 03/25/18 12:15 Dose: 1,000 mg Vancomycin HCl (Vancomycin) Confirm Administered Dose 1 gm .ROUTE .STK-MED ONE Stop: 03/25/18 10:06 Last Admin: 03/25/18 12:12 Dose: 1 gm
--- NOTE | 2018-03-31 14:46 | PCM.OPNOTE ---
- General Post-Op/Procedure Note Date of Surgery/Procedure: 03/25/18 Operative Procedure(s): left total hip arthroplasty Pre Op Diagnosis: left hip osteoarthosis Post-Op Diagnosis: Same Anesthesia Technique: Local, MAC, Spinal Primary Surgeon: Yinka Cooper Anesthesia Provider: [facility] Account Manager: Lupe Castillo [facility] Account Manager: Keisha Mancera EBJose Manuel in mLs: 200 Complications: None Condition: Good Free Text/Narrative:: size 52 cup size 3 stem 36+5 head
--- NOTE | 2018-03-31 15:25 | OR ---
DATE OF OPERATION: 03/25/2018 SURGEON: Yinka Cooper MD OPERATION PERFORMED: Left total hip arthroplasty. PREOPERATIVE DIAGNOSIS: Left hip osteoarthrosis. POSTOPERATIVE DIAGNOSIS: Left hip osteoarthrosis. ANESTHESIA: Local MAC with spinal. ANESTHESIA PROVIDER: Valorie Tate. ASSISTANTS: Lupe Castillo PA-C; and Keisha Mancera LPN. ESTIMATED BLOOD LOSS: 200 mL. COMPLICATIONS: None. CONDITION: Stable. IMPLANTS: 1. [place] size 52 Tritanium II acetabular cup. 2. David size 3 Accolade II stem. 3. [place] size 36 +5 Biolox femoral head. 4. [place] size 6.5 x 20 mm acetabular screw. DESCRIPTION OF PROCEDURE: The patient was identified in the preoperative holding area. Proper site was marked and identified by the surgeon. The patient was taken back to the operating room and after adequate anesthesia, the patient was placed in a right lateral decubitus position. Axillary roll was placed. The patient's gluteal fold was parallel to the floor. Pegs were placed and were well padded. The patient was then securely fastened to the table. Left hip was then sterilely prepped and draped in the usual sterile fashion. OR time-out was performed. The patient received 2 g IV Ancef. A standard posterior incision was made. This was taken down to the IT band and gluteal fascia, which was incised along the incisional length. Charnley retractor was then placed, and attention was turned to the short external rotators. The short external rotators were identified, and takedown of the short external rotators as well as the capsule was done from the level of the piriformis down to the lesser trochanter. Hip was then dislocated. Neck cut was then completed and found to be adequate. Attention was turned to the acetabulum. Anterior and posterior acetabular retractors were then placed and found to be in adequate position. The pulvinar as well as remaining labrum was resected. Starting with a size 46 reamer, I was able to ream up to a 52, which was found to have adequate purchase. A 52 mm Tritanium 2 acetabular cup was impacted into place. At this time, secondary to the patient's known ostial soft bone, the patient did have a 6.5 screw placed which had adequate purchase. The 36 flat liner was then impacted into place for 36 mm head. Attention was turned to the femur. Box chisel was used out laterally. Sterile was placed down the canal. Starting with the 0 broach, I was able to broach up to a size 3, which was found to be rotationally and vertically stable. At this time, a trial implant of a +0 was trialed and was found to be a little bit short, so +5 was placed and found to have adequate catholic of leg lengths as well as it was stable throughout range of motion. At this time, the size 3 Accolade II stem was impacted into place along with a 36, +5 mm Biolox femoral head. Hip was then reduced. It was found to be again stable throughout range of motion. A #5 Ethibond suture was used for closure of the short external rotators and capsule. 1 L dilute Betadine solution was irrigated through the hip along with 3 L pulse lavage irrigation with Ancef. Topical tranexamic acid as well as vancomycin powder was placed. Periarticular injection was completed. At this time, #2 barbed suture was used for closure of the IT band and gluteal fascia, 2-0 Vicryl was used subcutaneously, and Prineo was used for the skin. The patient tolerated the procedure well and was sent to PACU in stable condition. SILVIA /[id number]
== END 2018-03-26 14:35 | disposition home or self-care (01) | DRG 470 ==
LOC: JD.MS 03-25 09:32
PROVIDERS: ADMIT Orthopaedic Surgery; ATTEND Orthopaedic Surgery
PROC: 3E0U029 Introduction of Other Anti-infective into Joints, Open Approach (ICD-10-PCS; principal; 2018-03-25)
PROC: 0SRB0JZ Replacement of Left Hip Joint with Synthetic Substitute, Open Approach (ICD-10-PCS; principal; 2018-03-25)
DX: M16.12 Unilateral primary osteoarthritis, left hip (principal); G89.29 Other chronic pain; M54.5 Low back pain; M85.80 Other specified disorders of bone density and structure, unspecified site; H54.7 Unspecified visual loss; Z88.5 Allergy status to narcotic agent; Z86.718 Personal history of other venous thrombosis and embolism; Z79.01 Long term (current) use of anticoagulants; Z79.899 Other long term (current) drug therapy
CPT/HCPCS: 01214; 36415; 51798; 73501-26-LT; 73501-LT; 80053; 85027; 86850; 86900; 86901; 87641; 97110-GP; 97116-GP; 97161-GP; 97165-GO; 97535-GO; A9270-GY; C1776; J0171; J0690; J0697; J1885; J2250; J2270; J2405; J2704; J3010; J3370; J3490; J7050; J7120